=== PATIENT | female | born 1955 | race Caucasian/White ===

== ENCOUNTER 2017-04-16 13:57 | Inpatient (IN) | payer OTHER ==
[~2017-04-16] VITALS: Ht 165.1 cm; Wt 59.0 kg
--- NOTE | ~2017-04-16 | PROC ---
[address] [address] PROCEDURE REPORT Name: LORETTA NEWBY Room: [address] IN M.R.#: [id number] Admission: 04/16/17 Attend Phys: Roseann Church MD Discharge: 04/18/17 Date of : 55 Report #: [id number] THIS REPORT FOR: //name// For GI report, Please see the Provation report in Perceptive 7 content. By: 1440Medical Records Staff QUINN /ARPIT
[~2017-04-16 13:57] MED LIST: GLUCOPHAGE1000 MG PO; LANTUS
[2017-04-16 13:58] VITALS: BP 169/66
[2017-04-16 14:20] LABS: ABSOLUTE BASOPHILS 0.1 thou/uL (0.0-0.2); ABSOLUTE EOSINOPHILS 0.2 thou/uL (0.0-0.7); ABSOLUTE LYMPHOCYTES 2.9 thou/uL (0.8-5.3); ABSOLUTE MONOCYTES 0.6 thou/uL (0.0-1.2); ABSOLUTE NEUTROPHILS 3.7 thou/uL (1.6-8.1); BASOPHILS 1.3 %; EOSINOPHILS 2.9 %; HEMATOCRIT 37.7 % (37.0-47.0); HEMOGLOBIN 12.9 gm/dL (12.0-15.0); LYMPHOCYTES 38.3 %; MCH 30.6 pg (26.0-34.0); MCHC 34.3 g/dL (28.0-37.0); MCV 89.4 fL (80.0-100.0); MPV 9.4 fl. (7.2-11.1); NUCLEATED RBCS 0 /100WBC; PLATELET COUNT* 255 thou/uL (150-400); POLYS 49.5 %; RBC 4.22 mil/uL (4.20-5.00); RDW-CV 13.2 % (10.5-14.5); WBC 7.5 thou/uL (4.0-11.0)
[2017-04-16 14:38] LABS: ANION GAP 9 mmol/L (7-16); BUN 14 mg/dL (7-18); CALCIUM 8.7 mg/dL (8.5-10.1); CHLORIDE 100 mmol/L (98-107); CO2 27 mmol/L (21-32); CREATININE 1.2 mg/dL (0.6-1.3); GLUCOSE 58 mg/dL (70-99); POTASSIUM 3.1 mmol/L (3.5-5.1); SODIUM 136 mmol/L (136-145)
[2017-04-16 14:42] LABS: ALBUMIN 3.4 g/dL (3.4-5.0); ALKALINE PHOSPHATASE 109 U/L (46-116); LIPASE 73 U/L (73-393); MAGNESIUM 1.9 mg/dL (1.8-2.4); SGOT 23 U/L (15-37); SGPT 30 U/L (30-65); TOTAL BILIRUBIN 0.3 mg/dL (<0.1-1.0); TOTAL PROTEIN 6.6 g/dL (6.4-8.2); TROPONIN-I LEVEL <0.06 ng/mL (<0.06)
[2017-04-16 15:56] VITALS: BP 148/73
[2017-04-16 16:00] VITALS: BP 173/103
[2017-04-16] MEDS ORDERED: LEVEMIR SUBQ (16:23)
[2017-04-16] MEDS ORDERED: LIPITOR 20 MG T20 M1 PO (16:26)
[2017-04-16] MEDS ORDERED: LISINOPRIL10 MG PO (17:23)
[2017-04-16 20:00] VITALS: BP 161/85
[2017-04-17] VITALS: BP 144/73
[2017-04-17 04:00] VITALS: BP 130/74
[2017-04-17 08:00] VITALS: BP 121/72
[2017-04-17 12:34] VITALS: BP 150/63
--- NOTE | 2017-04-17 12:56 | EKG ---
[place] [address] ELECTROCARDIOGRAM REPORT Name: LORETTA NEWBY Room: [address] ADM IN M.R.#: [id number] Admission: 04/16/17 Attend Phys: Roseann Church MD Discharge: Date of : 55 Report #: [id number] THIS REPORT FOR: //name// [facility] ED Test Date: 2017-04-16 Test Time: 14:16:46 Pat Name: LORETTA NEWBY Department: Room: [facility] Gender: F Pricing Manager: : 1955 Requested By: Axel Mejia Order Number: [id number] MD: Miki Sparrow Measurements Intervals [place] Rate: 83 P: 65 CT: 157 QRS: 58 QRSD: 86 T: 73 QT: 372 QTc: 437 Interpretive Statements Sinus rhythm Probable left atrial enlargement No previous ECG available for comparison Electronically Signed On 04-17-2017 12:56:31 SEQUENCING MACHINE OPERATOR by Miki Sparrow [email or web address] <ELECTRONICALLY SIGNED> By: Miki Sparrow MD, [facility] 04/17/17 1256 1416 1416 Miki Sparrow MD, FACC /EPI
[2017-04-17 19:45] VITALS: BP 117/58
[2017-04-18 04:10] VITALS: BP 141/74
[2017-04-18 09:00] VITALS: BP 147/69
[2017-04-18] MEDS ORDERED: PANTOPRAZOLE SO40 M1 PO (12:38)
[2017-04-18 13:06] VITALS: BP 141/74
--- NOTE | 2017-04-20 11:21 | S ---
[address] [address] SURGICAL PATH RPT PROCEDURE Name: LORETTA NEWBY Room: [address] DIS IN M.R.#: [id number] Admission: 04/16/17 Date of : 55 Discharge: 04/18/17 Report #: [id number] Path Case #: [id number] PATHOLOGY REPORT COLLECTION DATE: 04/19/2017 RECEIVED DATE: 04/19/2017 SUBMITTING PHYS: Dr. Montana Clark OTHER PHYS: Dr. Roseann Bowling SPECIMEN(S) RECEIVED: A.Antrum B.Gastric polyps * * * * * * * * * * * * FINAL DIAGNOSIS: A. Gastric biopsy, "antrum": - Mild chronic gastritis arising in the background of chronic reactive gastropathy. - The immunoperoxidase stains for Helicobacter pylori is negative. B. Gastric biopsy, "gastric polyps": - Fragments of hyperplastic polyps and fundic gland polyps. - There is no evidence of adenomatous change, high-grade dysplasia, or malignancy. (SHA:mgr; 04/20/2017) PATHOLOGIST: Marty Carmicahel M.D. REPORT ELECTRONICALLY SIGNED BY: Marty Carmichael M.D. DATE/TIME: 04/20/2017 11:21 * * * * * * * * * * * * GROSS PATHOLOGY: A. Received in formalin labeled "Loretta Newby, antral erosion," is a segment of sams soft tissue measuring 0.4 cm in maximum dimension. The specimen is submitted entirely in cassette A1. B. Received in formalin labeled "Loretta Newby, gastric polyps," are 4 segments of sams soft tissue measuring 1.0 x 0.8 x 0.3 cm in aggregate dimensions and ranging from 0.2 to 0.4 cm in maximum dimension. The specimen is submitted entirely in cassette B1. (TSD; 04/19/2017) CLINICAL HISTORY: None provided INITIAL CPT CODE(S): A; 14396, [address] [place] [address] SURGICAL PATH RPT PROCEDURE Name: LORETTA NEWBY Room: [address] IN M.R.#: [id number] Admission: 04/16/17 Date of : 55 Discharge: 04/18/17 Report #: [id number] Path Case #: [id number] B; [id number] Professional services performed by [facility] at [facility], [address] [place] [id number]. Technical services performed by [facility] at [address] [place] [address], [address], [place] [address]. [facility] [address] [address] PHONE: [phone] DIRECTOR: Stefan Lopez M.D. * * * END OF REPORT * * *
--- NOTE | 2017-05-03 15:05 | CON ---
[address] [address] CONSULTATION Name: LORETTA NEWBY Room: [address] IN M.R.#: [id number] Admission: 04/16/17 Attend Phys: Roseann Church MD Discharge: 04/18/17 Date of : 55 Report #: [id number] THIS REPORT FOR: //name// CC: Roseann Bowling DATE OF SERVICE: 04/17/2017 REASON FOR CONSULTATION: Dysphagia and gastroesophageal reflux disease. HISTORY OF PRESENT ILLNESS: This is a 61-year-old female with long history of gastroesophageal reflux symptoms, who has been complaining of dysphagia to both solids and liquids. She also has diabetes for the past 15 years. She denies any symptoms of dyspepsia, early satiety or abdominal pain. The patient admits that she has never had any colonoscopies, but she has family history of colon polyps. PAST MEDICAL HISTORY: Significant for history of hypertension, diabetes, dyslipidemia, right hip replacement, and gastroesophageal reflux disease. ALLERGIES: No known drug allergy. MEDICATIONS: Please refer to hospital [facility]. SOCIAL HISTORY: The patient denies any tobacco or alcohol use. FAMILY HISTORY: Significant for history of colon polyps. PHYSICAL EXAMINATION: VITAL SIGNS: Reveals blood pressure of 141/74, respirations 17, pulse 77, temperature 98.1. LUNGS: Clear. CARDIOVASCULAR: Regular. ABDOMEN: Soft, nontender, nondistended. Bowel sounds are positive. LABORATORY DATA: Reveal sodium of 136, potassium is 4.6, BUN is 14, creatinine 1.2, glucose 58. Liver functions are all within normal limit. WBC is 7.5 with hemoglobin of 12.9 and platelet of 255. IMAGING: Chest x-ray was obtained, which was essentially negative. ASSESSMENT AND PLAN: The patient with long history of GERD and dysphagia to solids and liquids. We will go ahead and perform [place] [id number] CONSULTATION Name: LORETTA NEWBY Room: [address] IN [facility].#: [id number] Admission: 04/16/17 Attend Phys: Roseann Church MD Discharge: 04/18/17 Date of : 55 Report #: [id number] possibly dilate her esophagus. In reference to not ever having a colonoscopy, we will consider colonoscopy as an outpatient. <ELECTRONICALLY SIGNED> By: Montana Clark MD 05/03/17 1505 0923 1845Montana Clark MD /nt
== END 2017-04-18 15:53 | disposition home or self-care (01) | DRG 392 ==
LOC: M.ERS 13:57 → M.2W 15:21 → M.TBA-ER 15:21 → M.2W 15:48
PROVIDERS: Emergency Medicine Emergency Medical Services; ADMIT Internal Medicine
PROC: 0D758ZZ Dilation of Esophagus, Via Natural or Artificial Opening Endoscopic (ICD-10-PCS; principal; 2017-04-18)
PROC: 0DB68ZX Excision of Stomach, Via Natural or Artificial Opening Endoscopic, Diagnostic (ICD-10-PCS; principal; 2017-04-18)
DX: K29.70 Gastritis, unspecified, without bleeding (principal); K21.0 Gastro-esophageal reflux disease with esophagitis; K22.2 Esophageal obstruction; K44.9 Diaphragmatic hernia without obstruction or gangrene; E11.9 Type 2 diabetes mellitus without complications; I10 Essential (primary) hypertension; K31.7 Polyp of stomach and duodenum; E78.00 Pure hypercholesterolemia, unspecified; Z96.641 Presence of right artificial hip joint; Z79.4 Long term (current) use of insulin; Z79.84 Long term (current) use of oral hypoglycemic drugs; Z79.899 Other long term (current) drug therapy; Z83.71 Family history of colonic polyps